=== PATIENT | male | born 1965 | race Caucasian/White ===

== ENCOUNTER 2016-07-30 03:02 | Emergency (ER) | payer OTHER ==
[2016-07-30 07:22] LABS: HEMOGLOBIN 15.1 gm/dl (14.0-17.5); RED BLOOD COUNT 5.38 M/UL (4.20-5.50); WHITE BLOOD COUNT 8.2 K/UL (4.5-11.0)
[2016-07-30 07:44] LABS: BUN/CREATININE RATIO 9 (0-10)
== END 2016-07-30 10:00 | disposition home or self-care (01) ==
LOC: ER1 03:02
PROVIDERS: Physician Assistant
DX: S09.90XA Unspecified injury of head, initial encounter (principal); S16.1XXA Strain of muscle, fascia and tendon at neck level, initial encounter; S39.012A Strain of muscle, fascia and tendon of lower back, initial encounter; S29.012A Strain of muscle and tendon of back wall of thorax, initial encounter; R10.12 Left upper quadrant pain; I10 Essential (primary) hypertension; F17.200 Nicotine dependence, unspecified, uncomplicated; V43.62XA Car passenger injured in collision with other type car in traffic accident, initial encounter; Y93.89 Activity, other specified; Y92.410 Unspecified street and highway as the place of occurrence of the external cause
CPT/HCPCS: 36415; 70450; 71260; 72070; 72125; 72131; 80053; 82150; 83690; 85025; 96360; 96361; 99285; G0480; J1885; J7030; J7050

== ENCOUNTER 2020-09-15 14:05 | Inpatient (IN) | payer OTHER ==
[~2020-09-15] VITALS: Ht 177.8 cm; Wt 72.6 kg
[~2020-09-15 14:05] MED LIST: ASPIR-LOW81 MG PO; ASPIRIN CHEWABL81 MG PO
[2020-09-15 15:47] LABS: RED BLOOD COUNT 5.51 M/UL (4.20-5.50); WHITE BLOOD COUNT 10.3 K/UL (4.5-11.0)
[2020-09-15 16:12] LABS: BUN/CREATININE RATIO 16 (0-10)
--- NOTE | 2020-09-15 19:43 | NUR ---
PT DOES NOT KNOW HOME MEDICATIONS AND DOES NOT KNOW NAME OF PHARMACY. WILL REASSESS LATER.
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
[2020-09-18 08:14] LABS: HBSAG SCREEN Negative (Negative); HEP A AB, IGM Negative (Negative); HEP B CORE AB, IGM Positive (Negative); HEP C VIRUS AB >11.0 (0.0-0.9)
== END 2020-09-15 22:58 | disposition left against medical advice (07) | DRG 684 ==
LOC: ER1 14:05 → CDU 17:40 → MED SURG 4 18:59
PROVIDERS: Emergency Medicine; Physician Assistant; ADMIT Internal Medicine
DX: N17.9 Acute kidney failure, unspecified (principal); N12 Tubulo-interstitial nephritis, not specified as acute or chronic; B96.20 Unspecified Escherichia coli [E. coli] as the cause of diseases classified elsewhere; Z82.49 Family history of ischemic heart disease and other diseases of the circulatory system; E10.65 Type 1 diabetes mellitus with hyperglycemia; E87.5 Hyperkalemia; F17.210 Nicotine dependence, cigarettes, uncomplicated; Z20.822 Contact with and (suspected) exposure to COVID-19; R00.0 Tachycardia, unspecified; R42 Dizziness and giddiness; I10 Essential (primary) hypertension
CPT/HCPCS: 70450; 71045; 80053; 80074; 80307; 81001; 82140; 82550; 82553; 83605; 83690; 83735; 83874; 84484; 85025; 85610; 85730; 93005; 99285; G0480; J7030; J7120; U0002